=== PATIENT | female | born 1985 | race Caucasian/White ===

== ENCOUNTER 2016-08-31 13:11 | Day surgery (SDC) | payer OTHER ==
[~2016-08-31] VITALS: Ht 160 cm; Wt 67.1 kg
[2016-08-31 14:35] VITALS: Ht 160 cm; Wt 67.1 kg
[2016-08-31] MEDS ORDERED: POLY17PO6 PO (15:02)
[2016-08-31] MEDS ORDERED: ONDA4TAB95 PO (15:02)
[2016-08-31] MEDS ORDERED: HYDR-3011 PO (15:02)
[2016-08-31] MEDS ORDERED: PANT40TA4 PO (15:02)
[2016-08-31] MEDS ORDERED: MELO7.5O PO (15:02)
[2016-08-31] MEDS ORDERED: PROBIOTICS (15:02)
[2016-08-31 15:45] VITALS: BP 122/71; PULSE 59; RESP 16
[2016-08-31] MEDS ORDERED: FENTAnyl 50 MCG/ML VIAL ONE (16:51)
[2016-08-31] MEDS ORDERED: PROPOFOL 20 ML ONE (16:51)
[2016-08-31 17:13] VITALS: BP 114/61; PULSE 72; RESP 20
[2016-08-31 17:39] VITALS: BP 130/70; PULSE 64; RESP 22
--- NOTE | 2016-09-02 04:17 | GILP ---
DATE OF PROCEDURE: 08/31/2016 PROCEDURE: Esophagogastroduodenoscopy with biopsies. BRIEF HISTORY AND INDICATIONS: The patient is being evaluated for persistent nausea and vomiting. PREMEDICATION: Monitored anesthesia care by anesthesiologist. INSTRUMENT USED: Olympus panendoscope. SURGEON: Onofre Wallis MD. TECHNIQUE: After informed consent, with the patient/relatives understanding the procedure, its indic ations, potential risks and complications, including but not limited to: allergic reaction, bleeding , perforation or infection, and after all pertinent questions were answered to the patients satisfac tion, the patient/relatives signed witnessed informed consent. Following this, premedication was administered slowly IV push under careful cardiovascular and respi ratory monitoring with pulse oximetry, automatic blood pressure and lunchroom monitor. Once the sedative effect was achieved the patient was place in the left lateral decubitus, the panen doscope was introduced and advanced under visual control. Careful examination of the upper gastrointestinal tract, both on insertion as well as withdrawal of the instrument disclosed the following findings: ESOPHAGUS: There is an 8 mm esophageal ulceration with a clean base in the distal esophagus near th e EG junction. Biopsies were obtained to rule out Quick esophagus. A small hiatal hernia is present. STOMACH: Upon entrance to the stomach, air was insufflated, the gastric nath distended normally. There was erythema and edema of the mucosa of a moderate degree. Biopsies were obtained to rule out H. pylori infection. PYLORUS: The pylorus appears patent and within normal limits, with no evidence of gastric outlet ob struction. DUODENUM: The duodenal mucosa was carefully examined in the duodenal bulb as well as the second por tion of the duodenum and appears unremarkable with no evidence of duodenitis, ulcer or neoplasm. The instrument was then withdrawn, the patient tolerated the procedure well and was transfer out of the endoscopy suite awake, and in good condition to continue recovery under observation IMPRESSION: 1. An 8 mm esophageal ulcer with clean base. Biopsies obtained to rule out Quick esophagus. 2. Hiatal hernia, small. 3. Gastritis, moderate. Rule out H. pylori infection, biopsies obtained. PLAN: The patient will be treated with PPIs. Pathology will be reviewed as soon as available. Fol lowup endoscopy in 8 weeks is recommended to assess healing of esophageal ulceration. Dictated By: ONOFRE WALLIS MS/OLGA Conf#: [id number] [facility]#: [id number]
== END 2016-08-31 18:18 | disposition home or self-care (01) ==
LOC: GIL 13:11
PROVIDERS: ATTEND Internal Medicine Gastroenterology
DX: K22.10 Ulcer of esophagus without bleeding (principal); K44.9 Diaphragmatic hernia without obstruction or gangrene; K29.70 Gastritis, unspecified, without bleeding
CPT/HCPCS: 43239; 84703; 88305; 88312; J3010; Z7610